=== PATIENT | male | born 1985 | race African-American/Black ===

== ENCOUNTER 2020-11-23 13:32 | Emergency (ER) | payer SELFPAY ==
[~2020-11-23] VITALS: Ht 175.3 cm; Wt 75.0 kg
--- NOTE | 2020-11-23 13:35 | NUR ---
[facility] NOTIFIED AT 1330.
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
--- NOTE | 2020-11-23 13:45 | NUR ---
PT LEFT EMERGENCY DEPT. [facility] HERE, INTERVIEWING PT. SECURITY STANDING BY.
[2020-11-23 13:49] VITALS: BP 122/87
== END 2020-11-23 14:36 | disposition left against medical advice (07) ==
LOC: ED 14:00
DX: M54.6 Pain in thoracic spine (principal); V49.49XA Driver injured in collision with other motor vehicles in traffic accident, initial encounter; Y93.89 Activity, other specified; Y92.89 Other specified places as the place of occurrence of the external cause; Y99.8 Other external cause status
CPT/HCPCS: 99283